=== PATIENT | female | born 2000 | race Caucasian/White ===

== ENCOUNTER 2020-06-23 01:08 | Emergency (ER) | payer MEDICAID ==
[~2020-06-23] VITALS: Ht 162.6 cm; Wt 78.0 kg
[2020-06-23] MEDS ORDERED: ALPRAZOLAM 0.5 MG TABLET PO ONE (01:15)
[2020-06-23 01:42] LABS: BASOPHILS % 0.9 % (0.0-2.0); EOSINOPHILS % 0.8 % (0.0-5.0); HEMOGLOBIN. 13.3 g/dL (12.0-16.0); LYMPHOCYTES % 27.1 % (20.0-50.0); MEAN CORPUSCULAR HEMOGLOBIN 26.7 pg (28.0-32.0); MEAN CORPUSCULAR VOLUME 80.5 fL (81.0-99.0); MEAN PLATELET VOLUME 7.8 fl (7.4-10.4); MONOCYTES % 4.2 % (2.0-8.0); PLATELET 386 x1000/uL (130-400); RED BLOOD CELL COUNT 4.97 mill/uL (4.2-5.4)
[2020-06-23 01:43] LABS: CHLORIDE 107 mEq/L (98-107)
[2020-06-23 02:09] LABS: HCG SCREEN NEGATIVE
[2020-06-23 04:45] VITALS: BP 107/61
== END 2020-06-23 05:15 | disposition home or self-care (01) ==
LOC: ER 01:08
DX: R07.89 Other chest pain (principal); F41.9 Anxiety disorder, unspecified; F12.10 Cannabis abuse, uncomplicated
CPT/HCPCS: 36415; 71045; 80053; 83880; 84484; 84703; 85025; 93005; 99285

== ENCOUNTER 2020-08-23 22:21 | Emergency (ER) | payer MEDICAID ==
[~2020-08-23] VITALS: Ht 167.6 cm; Wt 81.0 kg
[2020-08-24 00:30] LABS: BASOPHILS % 0.5 % (0.0-2.0); EOSINOPHILS % 1.3 % (0.0-5.0); HEMATOCRIT. 41.3 % (36.0-48.0); HEMOGLOBIN. 13.7 g/dL (12.0-16.0); LYMPHOCYTES % 33.8 % (20.0-50.0); MEAN CORPUSCULAR HEMOGLOBIN 26.9 pg (28.0-32.0); MEAN CORPUSCULAR VOLUME 80.9 fL (81.0-99.0); MEAN PLATELET VOLUME 7.8 fl (7.4-10.4); MONOCYTES % 4.8 % (2.0-8.0); NEUTROPHILS % 59.6 % (40.0-76.0); PLATELET 325 x1000/uL (130-400); RED CELL DISTRIBUTION WIDTH 14.9 % (11.6-14.6)
[2020-08-24 00:36] LABS: CHLORIDE 109 mEq/L (98-107)
[2020-08-24 06:34] LABS: CHLORIDE 109 mEq/L (98-107)
[2020-08-24 06:37] LABS: BASOPHILS % 0.6 % (0.0-2.0); EOSINOPHILS % 1.4 % (0.0-5.0); HEMOGLOBIN. 13.7 g/dL (12.0-16.0); MEAN CORPUSCULAR HEMOGLOBIN 27.2 pg (28.0-32.0); MEAN CORPUSCULAR VOLUME 81.5 fL (81.0-99.0); MONOCYTES % 4.1 % (2.0-8.0); NEUTROPHILS % 57.9 % (40.0-76.0); PLATELET 323 x1000/uL (130-400); RED BLOOD CELL COUNT 5.03 mill/uL (4.2-5.4); RED CELL DISTRIBUTION WIDTH 14.6 % (11.6-14.6)
[2020-08-24 06:53] LABS: HCG SCREEN NEGATIVE
[2020-08-24] MEDS ORDERED: IOHEXOL-350 100 ML BOTTLE ONE (10:13)
[2020-08-24 10:50] VITALS: BP 132/76
== END 2020-08-24 10:50 | disposition home or self-care (01) ==
LOC: ER 22:21
DX: R07.9 Chest pain, unspecified (principal); R06.02 Shortness of breath; F41.9 Anxiety disorder, unspecified
CPT/HCPCS: 36415; 71045; 71275; 80053; 83880; 84443; 84484; 84703; 85025; 93005; 99285; Q9967

== ENCOUNTER 2020-10-14 13:29 | Emergency (ER) | payer MEDICAID ==
[~2020-10-14] VITALS: Ht 162.6 cm; Wt 75.0 kg
[2020-10-14] MEDS ORDERED: KETOROLAC 30MG/ML VIAL IV STA (13:46)
[2020-10-14] MEDS ORDERED: METOCLOPRAMIDE HCL 10MG/2ML VIAL IV ONE (14:00)
[2020-10-14] MEDS ORDERED: SODIUM CHLORIDE 0.9% 1,000 ML IV ONE (14:00)
[2020-10-14] MEDS ORDERED: DIPHENHYDRAMINE 50MG/ML VIAL IV ONE (14:00)
[2020-10-14 14:13] LABS: EOSINOPHILS % 0.9 % (0.0-5.0); HEMATOCRIT. 41.9 % (36.0-48.0); LYMPHOCYTES % 26.7 % (20.0-50.0); MEAN CORPUSCULAR VOLUME 81.1 fL (81.0-99.0); MEAN PLATELET VOLUME 7.9 fl (7.4-10.4); MONOCYTES % 4.2 % (2.0-8.0); NEUTROPHILS % 67.2 % (40.0-76.0); PLATELET 303 x1000/uL (130-400); RED BLOOD CELL COUNT 5.17 mill/uL (4.2-5.4); RED CELL DISTRIBUTION WIDTH 14.4 % (11.6-14.6)
[2020-10-14 15:16] VITALS: BP 125/86
== END 2020-10-14 15:17 | disposition home or self-care (01) ==
LOC: ER 13:40
DX: F41.9 Anxiety disorder, unspecified (principal); R51.9 Headache, unspecified
CPT/HCPCS: 36415; 70450; 81025; 85025; 96361; 96374; 96375; 99284; J1200; J1885; J2765; J7030